=== PATIENT | female | born 1985 | race Caucasian/White ===

== ENCOUNTER 2017-09-30 10:31 | Emergency (ER) | payer MEDICAID, OTHER ==
[~2017-09-30] VITALS: Ht 160 cm; Wt 47.6 kg
[~2017-09-30 10:31] MED LIST: PERM5CRE4 TOP
[2017-09-30 11:02] VITALS: BP 115/70; PULSE 93; RESP 16; TEMP 98.9; O2SAT 99
--- NOTE | 2017-09-30 11:32 | PD ---
HPI Chief Complaint: Cold / Flu Symptoms Time Seen by Provider: 11:11 Travel History International Travel<30 days: No Contact w/Intl Traveler<30days: No Traveled to known affect area: No History of Present Illness HPI 32-year-old otherwise healthy female presents to the emergency room for evaluation of cough and cold symptoms for the past 2 days. Symptoms started last night with body aches. She felt warm but did not actually take her temperature. She took 800 mg ibuprofen which helped with the body aches. Her 2 daughters are sick with similar symptoms. She has associated nonproductive cough, congestion, and sore throat. PFSH Past Medical History Anemia: Yes Asthma: No (HAD WITH FIRST ) Diminished Hearing: No Genitourinary: Yes (HPV) Immunizations Current: Yes ?: Not : 2 Para: 2 Tubal Ligation: Yes (1 month ago) Past Surgical History Gynecologic Surgery: Yes (LEEP PROCEDURE HPV) Social History Alcohol Use: Yes (OCC) Tobacco Use: No Substance Use: No Allergies-Medications (Allergen,Severity, Reaction): Coded Allergies: No Known Allergies (Verified Adverse Reaction, Unknown, 09/30/17) Reported Meds & Prescriptions Reported Meds & Active Scripts Active No Active Prescriptions or Reported Medications Review of Systems Except as stated in HPI: all other systems reviewed are Neg Physical Exam Narrative GENERAL: Well-nourished, well-developed female no acute distress. Afebrile. Ambulatory. SKIN: Focused skin assessment warm/dry. HEAD: Normocephalic. EYES: No scleral icterus. No injection or drainage. NECK: Supple, trachea midline. No JVD or lymphadenopathy. ENT: Mucosa pink and moist. No erythema or exudates. No uvular edema. No uvular , palatal, or tonsillar deviation. Airway patent. Nasal turbinates appear normal without nasal blood, purulent drainage or septal hematoma. EARS: Bilateral pinnae and external canals appear within normal limits. Bilateral tympanic membranes without erythema, dullness or perforation. CARDIOVASCULAR: Regular rate and rhythm without murmurs, gallops, or rubs. RESPIRATORY: Breath sounds equal bilaterally. No accessory muscle use. No crackles, rales, wheezes, or rhonchi. Data Data Last Documented VS Vital Signs Date Time Temp Pulse Resp B/P (MAP) Pulse Ox O2 Delivery O2 Flow Rate FiO2 09/30/17 11:02 98.9 93 16 115/70 (85) 99 Orders Orders Influenzae A/B Antigen (09/30/17 11:12) MDM Medical Decision Making Medical Screen Exam Complete: Yes Emergency Medical Condition: Yes Medical Record Reviewed: Yes Differential Diagnosis URI, flu, pneumonia, bronchitis Narrative Course 32-year-old female presents to the emergency room for evaluation of cold and flu symptoms that started last night. Her 2 daughters are sick with similar symptoms. Patient is afebrile and well-appearing in the emergency room. Vital signs stable. Physical exam is unremarkable. Rapid influenza is positive for influenza A. Patient discharged with prescription for Tamiflu and told to continue taking [id number] medications and follow-up with her primary care physician or return for worsening symptoms. She understands and agrees to plan. Diagnosis Primary Impression: Influenza A Referrals: Primary Care Physician Additional Instructions: Rest and drink plenty of fluids. Tamiflu as directed, until then. Take ibuprofen with food as directed, as needed for pain. Follow-up with a primary care physician. Return to the emergency room for worsening symptoms. Med/Other Pt SpecificInfo: Prescription(s) given Scripts No Active Prescriptions or Reported Meds Disposition: 01 DISCHARGE HOME Condition: Stable Erin Holliday Sep 30, 2017 11:31
[2017-09-30] MEDS ORDERED: OSEL75 PO (11:51)
== END 2017-09-30 12:02 | disposition home or self-care (01) ==
LOC: PHEFT 10:31
DX: J10.1 Influenza due to other identified influenza virus with other respiratory manifestations (principal)
CPT/HCPCS: 87804; 99283